=== PATIENT | female | born 1970 | race Caucasian/White ===

== ENCOUNTER 2019-09-10 10:56 | Emergency (ER) | payer SELFPAY ==
[2019-09-10] MEDS ORDERED: HYDROCODONE/ACETAMINOPHEN 5-325 MG TABLET PO ONE (12:18)
[2019-09-10 12:21] VITALS: BP 105/57
--- NOTE | 2019-09-10 12:21 | ER Document Report ---
ED Medical Screen (RME) - General Chief Complaint: Arm Injury Stated Complaint: ARM INJURY Time Seen by Provider: 09/10/19 12:16 Notes: Patient is a 49-year-old female who presents to the emergency department with primarily left wrist pain. She was walking out of [employer] and ended up tripping and falling on both wrists, her knee and also hit her left ribs. Exam: Deformity noted to left forearm. Tenderness to left knee, right wrist, and left ribs. I have greeted and performed a rapid initial assessment of this patient. A comprehensive ED assessment and evaluation of the patient, analysis of test results and completion of medical decision making process will be conducted by an additional ED providers. - Related Data Allergies/Adverse Reactions: Penicillins Allergy (Verified 09/10/19 12:11)
[2019-09-10] MEDS ORDERED: ONDANSETRON 4 MG TAB.RAPDIS PO ONE (12:27)
--- NOTE | 2019-09-10 13:22 | RADIOLOGY REPORT (SQ) ---
EXAM DESCRIPTION: FOREARM LEFT COMPLETED DATE/TIME: 09/10/2019 1:09 pm REASON FOR STUDY: fall COMPARISON: None. NUMBER OF VIEWS: Two views. TECHNIQUE: Two radiographic images acquired of the left forearm, including elbow and wrist in at [address] one projection. LIMITATIONS: None. FINDINGS: MINERALIZATION: Decreased BONES: Comminuted distal radial fracture with mild dorsal angulation of the distal fracture fragment. There is extension into the radiocarpal and distal radioulnar joint. Ulnar styloid fracture. SOFT TISSUES: Soft tissue swelling about the wrist. OTHER: No other significant finding. IMPRESSION: Comminuted distal radial fracture with extension into the radiocarpal and distal radioul jennifer joint. Small ulnar styloid fracture. TECHNICAL DOCUMENTATION: JOB ID: [id number] [employer]- All Rights Reserved Reading location - IP/workstation name: [email or web address]
--- NOTE | 2019-09-10 13:24 | RADIOLOGY REPORT (SQ) ---
EXAM DESCRIPTION: WRIST LEFT 3 VIEWS COMPLETED DATE/TIME: 09/10/2019 1:09 pm REASON FOR STUDY: fall COMPARISON: None. NUMBER OF VIEWS: Three views. TECHNIQUE: AP, lateral, and oblique radiographic images acquired of the left wrist. LIMITATIONS: None. FINDINGS: MINERALIZATION: Decreased. BONES: Comminuted distal radial fracture with extension to the radiocarpal and distal radioulnar join t. Mild dorsal angulation of the distal fracture fragment. Small ulnar styloid fracture. SOFT TISSUES: Soft tissue swelling about the wrist. OTHER: No other significant finding. IMPRESSION: 1. Comminuted distal radial fracture with extension into the radiocarpal and distal rad ioulnar joint. 2. Small ulnar styloid fracture. TECHNICAL DOCUMENTATION: JOB ID: [id number] [employer]- All Rights Reserved Reading location - IP/workstation name: [email or web address]
--- NOTE | 2019-09-10 13:25 | RADIOLOGY REPORT (SQ) ---
EXAM DESCRIPTION: WRIST RIGHT 3 VIEWS COMPLETED DATE/TIME: 09/10/2019 1:09 pm REASON FOR STUDY: fall COMPARISON: None. NUMBER OF VIEWS: Three views. TECHNIQUE: AP, lateral, and oblique radiographic images acquired of the right wrist. LIMITATIONS: None. FINDINGS: MINERALIZATION: Decreased. BONES: No acute fracture or dislocation. No worrisome bone lesions. Normal alignment. SOFT TISSUES: No soft tissue swelling. No foreign body. OTHER: No other significant finding. IMPRESSION: NEGATIVE STUDY OF THE RIGHT WRIST. NO RADIOGRAPHIC EVIDENCE OF ACUTE INJURY. TECHNICAL DOCUMENTATION: JOB ID: [id number] [employer]- All Rights Reserved Reading location - IP/workstation name: [email or web address]
--- NOTE | 2019-09-10 13:26 | RADIOLOGY REPORT (SQ) ---
EXAM DESCRIPTION: KNEE LEFT 4 VIEW COMPLETED DATE/TIME: 09/10/2019 1:09 pm REASON FOR STUDY: fall COMPARISON: None. NUMBER OF VIEWS: Four views. TECHNIQUE: AP, lateral, and both oblique radiographic images acquired of the left knee. LIMITATIONS: None. FINDINGS: MINERALIZATION: Normal. BONES: No acute fracture or dislocation. No worrisome bone lesions. Minimal patellofemoral osteophy tosis JOINT: No effusion. SOFT TISSUES: No soft tissue swelling. No radio-opaque foreign body. OTHER: No other significant finding. IMPRESSION: NEGATIVE STUDY OF THE LEFT KNEE. NO RADIOGRAPHIC EVIDENCE OF ACUTE INJURY. TECHNICAL DOCUMENTATION: JOB ID: [id number] [employer]- All Rights Reserved Reading location - IP/workstation name: [email or web address]
--- NOTE | 2019-09-10 13:27 | RADIOLOGY REPORT (SQ) ---
EXAM DESCRIPTION: RIBS LEFT W/PA CHEST COMPLETED DATE/TIME: 09/10/2019 1:09 pm REASON FOR STUDY: fall COMPARISON: None. TECHNIQUE: Frontal view of the chest and additional views of the left ribs acquired. NUMBER OF VIEWS: Four view. LIMITATIONS: None. FINDINGS: FRONTAL CXR: No pneumothorax. No pleural effusion. No atelectasis or infiltrates. RIBS: No displaced rib fractures. No lytic or blastic bony lesions. OTHER: No other significant finding. IMPRESSION: NO PNEUMOTHORAX. NO DISPLACED RIB FRACTURES. COMMENT: SITE OF TRAUMA/COMPLAINT MARKED/STAMP COMPLETED: NO. TECHNICAL DOCUMENTATION: JOB ID: [id number] [employer]- All Rights Reserved Reading location - IP/workstation name: [email or web address]
[2019-09-10] MEDS ORDERED: HYDROCODONE/ACETAMINOPHEN 5-325 MG (6 TAB/ER DISP) PO PRN (17:10)
[2019-09-10] MEDS ORDERED: OXYCODONE-ACETAMINOPHEN 5-325 MG TABLET PO ONE (17:11)
--- NOTE | 2019-09-10 17:51 | ER Document Report ---
ED Extremity Problem, Upper - General Chief Complaint: Arm Pain Stated Complaint: ARM INJURY Time Seen by Provider: 09/10/19 12:16 Primary Care Provider: HERRERA BRISENO DO [ACTIVE STAFF] - 09/13/19 Notes: Patient is an unfortunate 49-year-old female who fell today. She is complaining of bilateral arm pain but worse in her left wrist. Patient also had her knee and possibly hit her head. She had some pain in her chest wall from falling. Denies loss of consciousness. No syncope. Patient states that she is not sure what happened but believes that she may have tripped. Main complaint is left wrist pain. States that she had originally received pain medication when she first came in but has not received anything since then. TRAVEL OUTSIDE OF THE [place] IN LAST 30 DAYS: No - HPI Patient complains to provider of: Injury, Left, Wrist Onset: Just prior to arrival Quality of pain: Achy, Dull Severity of pain: Moderate Context: Fall Exacerbated by: Movement Relieved by: Rest, Positioning Similar symptoms previously: No - Related Data Allergies/Adverse Reactions: Penicillins Allergy (Verified 09/10/19 12:11) Past Medical History - Social History Smoking Status: Never Smoker Chew tobacco use (# tins/day): No Frequency of alcohol use: None Drug Abuse: None Family History: Reviewed & Not Pertinent Patient has suicidal ideation: No Patient has homicidal ideation: No - Medical History Medical History: Negative Past Surgical History: Reports: Hx Appendectomy, Hx Hysterectomy, Hx Orthopedic Surgery, Hx Tonsillectomy Review of Systems - Review of Systems -: Yes All other systems reviewed and negative Physical Exam - Vital signs Vitals: Temp Pulse Resp BP Pulse Ox 98.0 F 79 16 105/57 L 97 09/10/19 12:20 09/10/19 12:20 09/10/19 12:20 09/10/19 12:20 09/10/19 12:20 Interpretation: Normal - General General appearance: Alert In distress: None - Appears in pain - HEENT Head: Normocephalic, Atraumatic Eyes: Normal Pupils: PERRL - Respiratory Respiratory status: No respiratory distress Chest status: Tender - Tenderness to palpation over left chest wall Breath sounds: Normal Chest palpation: Tender - Cardiovascular Rhythm: Regular Heart sounds: Normal auscultation Murmur: No - Abdominal Inspection: Normal Distension: No distension Bowel sounds: Normal Tenderness: Nontender Organomegaly: No organomegaly - Back Back: Normal, Nontender - Extremities General upper extremity: Tender, Normal color, Normal temperature General lower extremity: Normal inspection, Nontender, Normal color, Normal ROM, Normal temperature, Normal weight bearing. No: Kandi's sign Shoulder: Normal Arm: Normal Elbow: Normal Forearm: Tender Wrist: Tender, Deformity, Limited ROM Hand: Normal Hip: Normal Thigh: Normal Knee: Tender - left. No: Instability - Neurological Neuro grossly intact: Yes Cognition: Normal Orientation: AAOx4 Korina Coma Scale Eye Opening: Spontaneous [place] Coma Scale Verbal: Oriented [place] Coma Scale Motor: Obeys Commands [place] Coma Scale Total: 15 Speech: Normal Motor strength normal: LUE, RUE, LLE, RLE Sensory: Normal - Psychological Associated symptoms: Normal affect, Normal mood - Skin Skin Temperature: Warm Skin Moisture: Dry Skin Color: Normal Course - Re-evaluation Re-evalutation: 09/10/2019 17:10 Patient is a 49-year-old female who was brought in after a fall. Patient is complaining of pain mostly over her left wrist and has a distal radius fracture on x-ray. Patient was discussed with Dr. Briseno from orthopedics. She is to be placed in a splint and follow-up on Friday. Patient is agreeable to this plan. Pain controlled with medication here in the emergency department. She has been placed in a sugar tong splint and given a sling. She will need a work note. She is neurovascularly intact at the time of discharge. Return if any worsening or concerning symptoms. Understands and agrees with plan. Stable for discharge. - Vital Signs Vital signs: Temp Pulse Resp BP Pulse Ox 98.0 F 79 16 105/57 L 97 09/10/19 12:20 09/10/19 12:20 09/10/19 12:20 09/10/19 12:20 09/10/19 12:20 - Diagnostic Test Radiology reviewed: Image reviewed, Reports reviewed Procedures - Immobilization Left Arm Pre-Proc Neuro Vasc Exam: Normal Immobilizer type: Sugar tong Performed by: PCT Post-Proc Neuro Vasc Exam: Normal Alignment checked and good: Yes Discharge - Discharge Clinical Impression: Left radial fracture Qualifiers: Encounter type: initial encounter Radius location: distal Fracture type: closed Fracture morphology: unspecified fracture morphology Qualified Code(s): S52.502A - Unspecified fracture of the lower end of left radius, initial encounter for closed fracture Condition: Stable Disposition: HOME, SELF-CARE Instructions: Fractured Radius ([facility]) Prescriptions: Hydrocodone/Acetaminophen [Ellerbe 5-325 mg Tablet] 1 tab PO TID #20 tablet Forms: Return to Work Referrals: HERRERA BRISENO DO [ACTIVE STAFF] - 09/13/19
== END 2019-09-10 18:11 | disposition home or self-care (01) ==
LOC: ER 10:56
PROC: 2W3DX1Z Immobilization of Left Lower Arm using Splint (ICD-10-PCS; principal; 2019-09-10)
DX: S52.502A Unspecified fracture of the lower end of left radius, initial encounter for closed fracture (principal); M79.601 Pain in right arm; M79.602 Pain in left arm; M25.532 Pain in left wrist; R07.89 Other chest pain; W19.XXXA Unspecified fall, initial encounter
CPT/HCPCS: 99283; 73090; 73564; 71101; 73110 ×2; 29125; S0119

== ENCOUNTER 2020-04-25 10:11 | Day surgery (SDC) | payer SELFPAY ==
--- NOTE | 2020-04-21 10:15 | RADIOLOGY REPORT (SQ) ---
EXAM DESCRIPTION: CHEST PA/LATERAL IMAGES COMPLETED DATE/TIME: 04/21/2020 10:03 am REASON FOR STUDY: PRE-OP COMPARISON: None. EXAM PARAMETERS: NUMBER OF VIEWS: two views TECHNIQUE: Digital Frontal and Lateral radiographic views of the chest acquired. RADIATION DOSE: NA LIMITATIONS: none FINDINGS: LUNGS AND PLEURA: No opacities, masses or pneumothorax. No pleural effusion. MEDIASTINUM AND HILAR STRUCTURES: No masses or contour abnormalities. HEART AND VASCULAR STRUCTURES: Heart normal size. No evidence for failure. BONES: No acute findings. HARDWARE: None in the chest. OTHER: No other significant finding. IMPRESSION: NO SIGNIFICANT RADIOGRAPHIC FINDING IN THE CHEST. TECHNICAL DOCUMENTATION: JOB ID: [id number] 2010 [employer]- All Rights Reserved Reading location - IP/workstation name: [email or web address]
[2020-04-21 12:14] LABS: AMORPHOUS SEDIMENT,URINE TRACE /HPF; APPEARANCE,URINE CLEAR; BILIRUBIN,URINE NEGATIVE (NEGATIVE); COLOR,URINE YELLOW; GLUCOSE, URINE NEGATIVE (NEGATIVE); KETONES,URINE NEGATIVE (NEGATIVE); LEUKOCYTE ESTERASE,URINE MODERATE (NEGATIVE); NITRITE,URINE NEGATIVE (NEGATIVE); PROTEIN,URINE NEGATIVE (NEGATIVE); URINE SPECIFIC GRAVITY 1.006; UROBILINOGEN,URINE NEGATIVE mg/dL (<2.0)
[2020-04-21 12:14] LABS: HEMATOCRIT 39.1 % (36.0-47.0); HEMOGLOBIN 13.2 g/dL (12.0-15.5); MEAN CORPUSCULAR HEMOGLOBIN 29.4 pg (27.0-33.4); MEAN CORPUSCULAR HGB CONC 33.8 g/dL (32.0-36.0); MEAN CORPUSCULAR VOLUME 87 fl (80-97); PLATELET COUNT 216 10^3/uL (150-450); RED BLOOD COUNT 4.49 10^6/uL (3.72-5.28); RED CELL DISTRIBUTION WIDTH 14.2 % (11.5-14.0); WHITE BLOOD COUNT 4.4 10^3/uL (4.0-10.5)
[2020-04-21 12:33] LABS: ANION GAP 8 (5-19); BLOOD UREA NITROGEN 20 mg/dL (7-20); CALCIUM 9.1 mg/dL (8.4-10.2); CARBON DIOXIDE 23 mmol/L (22-30); CHLORIDE 107 mmol/L (98-107); GLUCOSE 78 mg/dL (75-110); POTASSIUM 4.6 mmol/L (3.6-5.0)
--- NOTE | 2020-04-21 16:31 | EKG REPORT ---
SEVERITY:- NORMAL ECG - SINUS RHYTHM : Confirmed by: Dean Higgins MD 21-Apr-2020 16:30:41
[~2020-04-25 10:11] MED LIST: CLINDAMYCIN 600 MG/D5W RTU 600 MG/50 ML RTUPB IV PRN; FENTANYL CITRATE INJ/PF 100 MCG/2 ML AMPUL ONE; MIDAZOLAM 2 MG/2 ML INJ ONE; ONDANSETRON HCL INJ/PF 4 MG/2 ML SDV ONE; PROPOFOL INJ 200 MG/20 ML VIAL IV ONE
[2020-04-25] MEDS ORDERED: CLINDAMYCIN 600 MG/D5W RTU 600 MG/50 ML RTUPB IV ONE (10:23)
[2020-04-25] MEDS ORDERED: BUPIVACAINE HCL 0.5 % INJ/PF 30 ML SDV ONE (10:26)
[2020-04-25] MEDS ORDERED: LIDOCAINE 1% INJ-PF (10 MG/ML) 30 ML SDV ONE (10:27)
[2020-04-25] MEDS ORDERED: DEXAMETHASONE SOD PHOSPHATE INJ 4 MG/1 ML VIAL ONE (10:51)
[2020-04-25] MEDS ORDERED: EPINEPHRINE INJ/PF 1 MG/1 ML AMPULE ONE (10:51)
[2020-04-25] MEDS ORDERED: ROPIVACAINE HCL 0.5% INJ/PF (5 MG/1 ML) 30 ML SDV ONE (10:51)
[2020-04-25] MEDS ORDERED: MIDAZOLAM 2 MG/2 ML INJ ONE (10:52)
[2020-04-25] MEDS ORDERED: DIPHENHYDRAMINE HCL 50 MG/ML VIAL IV PRN (13:21)
[2020-04-25] MEDS ORDERED: FENTANYL CITRATE INJ/PF 100 MCG/2 ML AMPUL IV PRN ×3 (13:21)
[2020-04-25] MEDS ORDERED: MORPHINE SULFATE 10 MG/ML INJ IV PRN ×2 (13:21→14:55)
[2020-04-25] MEDS ORDERED: ONDANSETRON HCL INJ/PF 4 MG/2 ML SDV IV PRN (13:21)
[2020-04-25] MEDS ORDERED: MEPERIDINE HCL/PF INJ 25 MG/1 ML DISP.SYRIN IV PRN (13:21)
[2020-04-25] MEDS ORDERED: PROMETHAZINE HCL INJ 25 MG/1 ML VIAL IV PRN ×2 (13:21)
[2020-04-25] MEDS ORDERED: OXYCODONE-ACETAMINOPHEN 5-325 MG TABLET PO PRN (14:55)
--- NOTE | 2020-04-25 14:56 | Discharge Summary ---
Discharge Summary (SDC) - Discharge Final Diagnosis: Left distal radius malunion Date of Surgery: 04/25/20 Discharge Date: 04/25/20 Condition: Good Treatment or Instructions: Schedule Follow Up w/ Dr. Wes Salas @ [facility] for Surgery to be seen in 10-14 days or as scheduled [place]: [place]: Zap: Ice and elevate Keep splint clean/dry/intact, do not remove. If your fingers become numb please unwrap the Amor wrap but leave the splint in place, if the sensation does not return within 30 minutes please return to the emergency department. May begin finger range of motion attempting to make full fist. Please use ibuprofen (Motrin or Advil) 600-800 mg every 8 hours as needed for pain or fever DO NOT TAKE w/ TORADOL may use once TORADOL complete. You may also use acetaminophen (Tylenol) 1000 mg every 4-6 hours as needed for pain or fever. Please be aware that many medications contain acetaminophen, do not exceed a total of 1000 mg of acetaminophen every 6 hours. If ibuprofen and acetaminophen are not sufficient for your pain you may take the Percocet/[place]. Please be aware that the Percocet/[place] does contain Tylenol. Stool softener of choice when on pain medication. USE OF GIDT-IRV-MUWSEGC IBUPROFEN: Ibuprofen (Advil, Nuprin, Medipren, Motrin IB) is a medication for fever and pain control. In addition, it has anti- inflammatory effects which may be beneficial, especially in the treatment of injuries. It's best to take ibuprofen with food. Persons with ulcer disease or allergy to aspirin should notify their physician of this before taking ibuprofen. Ibuprofen can be given every four to six hours, for a total of four doses daily. Age Pain or fever dose Antiinflammatory dose 6-8 yr 200 mg (1 tab) 200 mg (1 tab) 9-11 yr 200 mg (1 tab) 200-400 mg (1-2 tab) 11-14 yr 200-400 mg (1-2 tab) 400 mg (2 tab) 15-adult 400 mg (2 tab) 600 mg (3 tab) ORAL NARCOTIC MEDICATION: You have been given a prescription for pain control. This medication is a narcotic. It's best taken with food, as nausea can result if taken on an empty stomach. Don't operate machinery or drive within six hours of taking this medication. Do not combine this medicine with alcohol, or with any medication which can cause sedation (such as cold tablets or sleeping pills) unless you get permission from the physician. Narcotics tend to cause constipation. If possible, drink plenty of fluids and eat a diet high in fiber and fruits. Please be aware that prescription narcotics also have the potential for abuse. People become addicted to these medications because of the general sense of wellbeing that they induce. This feeling along with a significant reduction in tension, anxiety, and aggression provides a stimulating seductive quality to these drugs. Once your pain is under control, we encourage you to discard your unused narcotics. Prescriptions: Oxycodone HCl/Acetaminophen [Percocet 7.5-325 mg Tablet] 1 each PO Q6 PRN #25 tablet PRN Reason: Discharge Diet: As Tolerated Respiratory Treatments at Home: Deep Breathing/Coughing Discharge Activity: No Lifting Over 10 Pounds, No Lifting/Push/Pulling Report the Following to Your Physician Immediately: Fever over 101 Degrees, Unusual Bleeding, Redness, Swelling, Warmth, Increased Soreness
--- NOTE | 2020-04-25 15:02 | Operative Report ---
Operative Report DATE OF SURGERY: 04/25/20 PREOPERATIVE DIAGNOSIS: Left distal radius malunion. Left carpal tunnel syndro me POSTOPERATIVE DIAGNOSIS: Same OPERATION: Left Corrective osteotomy with open reduction internal fixation extra-articular distal radius fracture with Osteo-Amp allograft. Left open carpal tunnel release SURGEON: HERRERA BRISENO ANESTHESIA: GA COMPLICATIONS: None ESTIMATED BLOOD LOSS: Minimal PROCEDURE: Indication for above procedure: 49-year-old female who sustained a fall resulting in a left distal radius fracture. Patient was treated conservatively but then developed malunion of the distal radius with persistent ulnar-sided pain and deformity. At that point we discussed treatment options including operative versus nonoperative intervention after discussing risks and benefits of both joint decision was made to proceed with operative treatment. Procedure In Detail: Patient was seen and evaluated in the preoperative holding area. The upper extremity was initialized and marked. Patient received Clindamycin IV for bacterial prophylaxis. Patient was taken back to the operative room where transferred to the operative table and placed under general anesthesia. Once they were adequately anesthetized and a nonsterile tourniquet was placed on his upper extremity. A surgical team debriefing was performed ensuring all instrumentation was available, the surgical procedure was discussed with possible concerns reviewed. The upper extremity was prepped with chlorhexidine and alcohol and draped in a sterile fashion. A timeout was done identifying correct patient, procedure and extremity everyone in attendance agree with this and verbalized no concerns.The extremity was exsanguinated the tourniquet was inflated to 250 mmHg. Longitudinal skin incision was made in line with the radial border of the ring finger 1 cm proximal to Baltazar cardinal line. Blunt dissection was performed palmar fascia was incised exposing the transverse carpal ligament. Transverse carpal ligament was then released distally to the adipose protecting the superficial palmar arch. The proximal aspect of the transverse carpal ligament and volar antebrachial fascia were then incised in line with the skin incision. There was compression of the median nerve at the mid palm with hourglass deformation. Wound was then irrigated with normal saline. Skin was closed with interrupted subcuticular 4-0 and 3-0 Monocryl reinforced with Dermabond at the completion of the case. A longitudinal skin incision was made via a volar approach of Taye along the FCR tendon sheath. The FCR tendon sheath was opened and the FCR retracted ulnarly, the palmar cutaneous branch of the median nerve was identified and protected throughout the entirety of the case. The radial artery was identified and retracted radially. Blunt dissection was performed to the FPL which was carefully sweeped ulnarly. This brought me to the pronator quadratus which was elevated off of the distal radius via sharp dissection with a 15 blade to allow later repair. A long narrow Acumed distal radius plate was then provisionally fixated aligned with the distal fragment. Prior fracture site was marked with a marking pen and K wire placed parallel to the planned osteotomy. This was then checked on AP and lateral view to ensure appropriate osteotomy. With an oscillating saw and irrigation the osteotomy was performed. It was then completed dorsally with an osteotome. The narrow Acumed plate was then once again provisionally secured. With a lamina credit authorizer the osteotomy was opened radially and the proximal shaft translated radially to correct the coronal plane. Multiple views with C arm were then obtained confirming appropriate placement of the plate with buddhism of radial height and radial inclination. Once satisfied with alignment the distal aspect of the plate was secured with a bicortical screw bring the plate firmly down to bone. Remaining distal screws were drilled to but not through the far cortex and appropriate size locking screw. Previous cortex screw was then exchanged for the appropriate size locking screw. Attention then went to fixation proximally a bicortical screw was placed through the dynamic hole while my assistant foreman maintained radial inclination height was then obtained and this was secured. C-arm was obtained confirming appropriate alignment. Fixation was then completed distally with an additional cortical screw and 2 locking screws. The wound was copiously irrigated with normal saline. There was no evidence of DRUJ instability on examination, Negative Siu's test, No crepitus with range of motion at the radiocarpal joint or DRUJ. The pronator quadratus was closed with interrupted 3-0 Monocryl suture. Subcutaneous tissues were closed with interrupted 4-0 Monocryl suture. The skin was closed with a running subcuticular 4-0 Monocryl suture which was reinforced with Dermabond and Steri- Strips. 20 mL of 0.5% Marcaine were injected for postoperative pain control. The tourniquet was then deflated. Was dressed with sterile 4 x 4's and patient was placed in a well-padded volar splint. Sponge counts, instrument counts and needle counts were correct. There was no intraoperative complications patient tolerated procedure well stable to PACU. Postoperative plan: Patient will be be placed in a short arm cast until osteotomy healing is noted.
[2020-04-25] MEDS: FENTANYL CITRATE INJ/PF 100 MCG/2 ML AMPUL ONE ×2 (15:15→15:25)
[2020-04-25] MEDS ORDERED: ONDANSETRON HCL INJ/PF 4 MG/2 ML SDV ONE (15:41)
--- NOTE | 2020-04-25 16:00 | RADIOLOGY REPORT (SQ) ---
EXAM DESCRIPTION: NO CHG FLUORO; WRIST LEFT 3 VIEWS IMAGES COMPLETED DATE/TIME: 04/25/2020 3:09 pm REASON FOR STUDY: ORIF LEFT WRIST ASSISTED WITH FLUORO IN OR COMPARISON: None. FLUOROSCOPY TIME: 1 minutes 31 seconds I would Images saved to PACS LIMITATIONS: None. PROCEDURE: ORIF left wrist with fluoro FINDINGS: Images document placement of a compression plate on the distal radius with multiple screws . IMPRESSION: ORIF left wrist. Refer to operative note for further information. COMMENT: PQRS 6045F: Fluoroscopy time of the procedure is documented in the report. TECHNICAL DOCUMENTATION: JOB ID: [id number] 2010 [employer]- All Rights Reserved Reading location - IP/workstation name: [email or web address]
--- NOTE | 2020-04-25 16:00 | RADIOLOGY REPORT (SQ) ---
EXAM DESCRIPTION: NO CHG FLUORO; WRIST LEFT 3 VIEWS IMAGES COMPLETED DATE/TIME: 04/25/2020 3:09 pm REASON FOR STUDY: ORIF LEFT WRIST ASSISTED WITH FLUORO IN OR COMPARISON: None. FLUOROSCOPY TIME: 1 minutes 31 seconds I would Images saved to PACS LIMITATIONS: None. PROCEDURE: ORIF left wrist with fluoro FINDINGS: Images document placement of a compression plate on the distal radius with multiple screws . IMPRESSION: ORIF left wrist. Refer to operative note for further information. COMMENT: PQRS 6045F: Fluoroscopy time of the procedure is documented in the report. TECHNICAL DOCUMENTATION: JOB ID: [id number] 2010 [employer]- All Rights Reserved Reading location - IP/workstation name: [email or web address]
[2020-04-25] MEDS ORDERED: OXYCODONE-ACETAMINOPHEN 5-325 MG TABLET ONE (16:30)
[2020-04-25 17:53] VITALS: BP 140/82
== END 2020-04-25 17:25 | disposition home or self-care (01) ==
LOC: OROUT 10:11
PROVIDERS: ATTEND Orthopaedic Surgery
DX: S52.552A Other extraarticular fracture of lower end of left radius, initial encounter for closed fracture (principal); W19.XXXA Unspecified fall, initial encounter; Y92.512 Supermarket, store or market as the place of occurrence of the external cause; G56.02 Carpal tunnel syndrome, left upper limb; Z03.818 Encounter for observation for suspected exposure to other biological agents ruled out
CPT/HCPCS: 25405; 64721; C1776; 01830; 36415; 64415; 71046; 76942; 80048; 81001; 85027; 87635; 93005; 93010; C9803; J0171; J1100; J2250; J2405; J2704; J2795; J3010; J3490